=== PATIENT | male | born 1980 | race Caucasian/White ===

== ENCOUNTER → 2021-11-20 | Outpatient (CLI) | payer OTHER, SELFPAY ==
--- NOTE | 2021-11-20 12:29 | PFTCOMP ---
COMPLETE PULMONARY FUNCTION TEST INTERPRETATION Brief HPI: Patient is a 41 -year-old male, currently under the care of Dr. Chappell, who presents to [facility] for complete pulmonary function tests secondary to diagnosis of possible asthma. Respiratory therapist reports good effort and reproducible results. Interpretation: Forced expiration spirometry shows no large airways obstructive ventilatory defect with an FEV1 of 102% predicted. There is no significant bronchodilator response by strict ATS criteria. Spirograms are of good quality and plateau normally. The respiratory flow volume loop shows a normal pattern. Lung volumes by body plethysmography show a normal total lung capacity at 7.84 L, 105% predicted. All other lung volumes are within normal limits. Diffusion capacity by carbon monoxide is normal at 98% predicted. The airway resistance is normal. No previous pulmonary function tests were available for review. Impression: These pulmonary function tests are within normal limits. Consider bronchoprovocation study if asthma is still a consideration.
== END | disposition home or self-care (01) ==
PROVIDERS: PCP Family Medicine; Referring Provider Family Medicine; Visit Provider Family Medicine
DX: R09.89 Other specified symptoms and signs involving the circulatory and respiratory systems (principal)
CPT/HCPCS: 94060; 94726; 94729

== ENCOUNTER → 2023-05-23 | Outpatient (CLI) | payer OTHER, SELFPAY ==
--- NOTE | 2023-05-23 12:15 | RAD_ITS ---
STUDY: X-RAY - THORACIC SPINE REASON FOR EXAM: Male, 43 years old. Pain. TECHNIQUE: 3 view(s) of the thoracic spine were obtained. COMPARISON: None. FINDINGS: Normal kyphosis of the thoracic spine. There is no substantial scoliosis. Normal thoracic vertebrae and endplates. Normal disc space heights. Normal soft tissues RAD/Thoracic Spine 3 Views IMPRESSION: Normal x-ray examination of the thoracic spine. Electronically Signed: Theron Palacios MD at 16:04 EST ,
--- OUTSIDE RECORDS SUMMARY | 2023-05-23 12:33 | XMS RPT_ITS | CCD ---
Author Name Unknown Address [address] [place] [address] Organization [facility] Care Team Providers Care Apiculture Teacher Name Role Phone Arsenio Kelley MD Unavailable Karina Henson MD Primary Care Provider KARINA HENSON Referring UnavailKARINA Yun Attending UnavailKARINA Yun Primary Care UnavailKarina Yun MD Primary Care Provider Chang Fitzgerald MD Unavailable KARINA HENSON Referring Unavaila KARINA Munguia Primary Care Unavaila ETTA Mccoy Attending Unavailable KARINA HENSON Primary Care Unavaila ETTA Mccoy Attending Unavailable Unavailable Primary Care Provider Unavailchele e Unavailable Primary Care Provider Unavailabl e FAY SAUNDERS Primary Care Unavailable Medications Current Medications Medication Drug Class(es) Dates Sig (Normalized) Sig (Original) busPIRone hydrochloride 5 mg oral tablet (1 source) take 2.5 mg by mouth three times daily busPIRone (BUSPAR) 5 MG tablet Take 2.5 mg by mouth 3 (three) times a day . 0 Active predniSONE 10 mg oral tablet (3 sources) Start: 09-29-2022 End: 10-20-2022 predniSONE (DELTASONE) 10 mg tablet Indications: Rhus dermatitis Take 4 tabs daily x 3 days, then 3 tabs x 3 days, 2 tabs x 3 days, then 1 tab x3 days with food. 30 tablet 0 10/08/2022 10/20/2022 Active Completed/Discontinued Medications Medication Drug Class(es) Dates Sig (Normalized) Sig (Original) azelastine hydrochloride 0.137 mg/actuat metered dose nasal spray (6 sources) Histamine-1 Receptor Antagonist azelastine (ASTELIN, ASTEPRO) 0.1% nasal spray Use 1 Lexa in the nose once daily. 0 Active Problems Problem Classification Problem Date Documented Da te Episodic/Chronic Allergic reactions (1 source) Contact dermatitis due to Genus Toxicodendron; Translations: [Unspecified contact dermatitis due to plants, except food] Episodic Contraceptive and procreative management (1 source) Patient encounter status; Translations: [Encounter for other general counseling and advice on contraception] Episodic Other diseases of veins and lymphatics (2 sources) Varicocele; Translations: [Scrotal varices] Episodic Other lower respiratory disease (2 sources) Dyspnea; Translations: [Shortness of breath] Episodic Other lower respiratory disease (1 source) H/O: pneumonia; Translations: [Personal history of pneumonia (recurrent)] Episodic Other upper respiratory disease (1 source) Allergic rhinitis; Translations: [Other allergic rhinitis] Chronic Pneumonia (except that caused by tuberculosis or sexually transmitted disease) (1 source) Unresolved pneumonia ; Translations: [Pneumonia, unspecified organism] Episodic Results Test Name Value Interpretation Reference Range Facil ity Vital Signs Date Time Vital Sign Value Performing Clinician Faci adithya 10-08-2022 18:08-0400 Body temperature 97.59 [degF] Deonte Holman APRN.CNP Work Phone: [facility] 10-08-2022 18:08-0400 Body weight 84.64 kg Deonte Holman APRN.CNP Work Phone: [facility] 10-08-2022 18:08-0400 Diastolic blood pressure 68 mm[Hg] Deonte Holman APRN.CNP Work Phone: [facility] 10-08-2022 18:08-0400 Heart rate 61 /min Deonte Holman APRN.CNP Work Phone: [facility] 10-08-2022 18:08-0400 Respiratory rate 18 /min Deonte Holman APRN.CNP Work Phone: [facility] 10-08-2022 18:08-0400 SaO2% (BldA) [Mass fraction] 98 % Deonte Holman APRN.CNP Work Phone: [facility] 10-08-2022 18:08-0400 Systolic blood pressure 122 mm[Hg] Deonte King GRISELDA Work Phone: [facility] 03-13-2022 15:22-0500 Body height 182.9 cm Van Castillo PA-C Work Phone: [facility] 03-13-2022 15:22-0500 Body temperature 97.11 [degF] Van Castillo PA-C Work Phone: [facility] 03-13-2022 15:22-0500 Body weight 83.01 kg Van Castillo PA-C Work Phone: [facility] 03-13-2022 15:22-0500 Diastolic blood pressure 60 mm[Hg] Van Castillo PA-C Work Phone: [facility] 03-13-2022 15:22-0500 Heart rate 84 /min Van Castillo PA-C Work Phone: [facility] 03-13-2022 15:22-0500 Respiratory rate 14 /min Van Castillo PA-C Work Phone: [facility] 03-13-2022 15:22-0500 SaO2% (BldA) [Mass fraction] 97 % Van Castillo PA-C Work Phone: [facility] 03-13-2022 15:22-0500 Systolic blood pressure 104 mm[Hg] Van Castillo PA-C Work Phone: [facility] 12-26-2020 13:36-0400 Body height 182.9 cm Etta Cee MD Work Phone: [facility] 12-26-2020 13:36-0400 Body mass index (BMI) [Ratio] 23.82 kg/m2 Etta Cee MD Work Phone: [facility] 12-26-2020 13:36-0400 Body temperature 97 [degF] Etta Cee MD Work Phone: [facility] 12-26-2020 13:36-0400 Body weight 79.65 kg Etta Cee MD Work Phone: [facility] 12-26-2020 13:36-0400 Diastolic blood pressure 75 mm[Hg] Etta Cee MD Work Phone: [facility] 12-26-2020 13:36-0400 Heart rate 58 /min Etta Cee MD Work Phone: [facility] 12-26-2020 13:36-0400 Respiratory rate 16 /min Etta Cee MD Work Phone: [facility] 12-26-2020 13:36-0400 SaO2% (BldA) [Mass fraction] 97 % Etta Cee MD Work Phone: [facility] 12-26-2020 13:36-0400 Systolic blood pressure 119 mm[Hg] Etta Cee MD Work Phone: [facility] Encounters Encounter Date Encounter Type Care Provider Facility Start: 04-23-2023 End: 04-23-2023 [facility] Facility:[facility] Start: 10-08-2022 End: 10-08-2022 [facility] Facility:[facility] Start: 10-08-2022 End: 10-08-2022 Patient encounter procedure Deonte King GRISELDA Work Phone: [facility] Procedures Date Procedure Procedure Detail Performing Clinician Start: 03-16-2022 Dup-scan artl isabell abdl/pel/scrot&/rpr orgn com Van Castillo PA-C Work Phone: Start: 03-16-2022 Us scrotum & contents B sanchez Castillo PA-C Work Phone: Start: 09-13-2020 Radiologic exam ches t 2 views Karina Henson MD Work Phone: Plan of Treatment Date Care Activity Detail Author Start: 01-04-2023 Covid-19 Vaccine () Covid-19 Vaccine () [facility] Start: 01-04-2023 Influenza vaccination [facility] Start: 05-06-2022 DEPRESSION ASSESSMENT DEPRESSION ASSESSMENT [facility] Start: 04-06-2022 COVID-19 VACCINE (3 - Booster) COVID-19 VACCINE (3 - Booster) [facility] Start: 01-04-2022 Influenza vaccination INFLUENZA (#1) [facility] Start: 08-23-2021 History and physical examination, annual for health maintenance Wellness Visit [facility] Start: 05-06-2021 DEPRESSION ASSESSMENT DEPRESSION ASSESSMENT [facility] Start: 01-04-2021 Influenza vaccination Sequential Influenza Vaccine (#1) [facility] Start: 12-26-2020 End: 12-26-2020 Patient encounter procedure 12/26/2020 Office Visit Pulmonology ColemanEtta MD [address] [place] [address] [phone] [facility] Start: 04-16-2020 History and physical examination, annual for health maintenance Wellness Visit [facility] Start: 2016 Lipid 1996 panel - Serum or Plasma Lipid Screening [facility] Start: 2016 LIPID SCREEN LIPID SCREEN [facility] Start: 2000 Urine microalbumin profile [facility] Start: 1999 Hepatitis C screening Hepatitis C Screening [facility] Start: 1999 HEPATITIS C SCREENING HEPATITIS C SCREENING [facility] Start: 1999 HIV SCREENING HIV SCREENING [facility] Start: 1996 HIV screening HIV Screening [facility] Start: 1993 Depression screening using PHQ-9 (Patient Health Questionnaire 9) score Depression Screening (PHQ9) [facility] Start: 1981 HEPATITIS B (1 of 3 - 3-dose series) HEPATITIS B (1 of 3 - 3-dose series) [facility] Start: 1981 Hepatitis B Vaccine (1 of 3 - 3-dose series) Hepatitis B Vaccine (1 of 3 - 3-dose series) [facility] Start: 1981 Tetanus vaccination Tetanus: Every 10yrs [facility] End: 01-03-2022 Complete PFT PRE/ POST, VOLUMES, dlco Complete PFT PRE/ POST, VOLUMES, dlco PFT Routine SOB (shortness of breath) 1 Occurrences starting 12/26/2020 until 01/03/2022 [facility] Work Phone: Immunizations Immunization Date Immunization Notes Care Provider Fa pantera 04-08-2022 influenza virus vacc ine, unspecified formulation 1 Work Phone: [facility] Payers Date Payer Category Payer Private Health Insurance [id number] 2022 Unknown [id number] 2022 Unknown [id number] 2020 Unknown [id number] 2020 Unknown [id number] 1981 Unknown [id number] 1981 Unknown [id number] 1981 Unknown [id number] Social History Date Type Detail Facility Tobacco smoking stat [facility] Unknown if ever smoked [facility] Start: 1981 Sex Assigned At Not on file [facility] Start: 03-03-2022 End: 03-13-2022 Exposure to SARS-CoV-2 (event) Not sure [facility]: 12-26-2020 [facility] End: 12-26-2001 History of tobacco use Current smoker [facility] Start: 04-14-2020 End: 12-26-2020 Cigarettes smoked current (pack per day) - Reported 0.1 [facility] Start: 12-26-2020 End: 02-23-2021 Tobacco use and exposure Smokeless tobacco non-user [facility] Start: 12-26-2020 End: 03-13-2022 Alcohol intake Current drinker of alcohol (finding) [facility] Start: 12-26-2020 History SDOH Alcohol Comment periodically. Maybe twice a month at most. [facility] Start: 02-23-2021 End: 07-26-2022 Tobacco smoking status NHIS Never smoked tobacco [facility] Start: 03-13-2022 Alcohol Comment Socially [facility] Start: 04-14-2020 End: 03-13-2022 Tobacco use panel [facility] National Score (1-10 0), lower number is lower risk Not on file [facility] Clinical Notes 12-26-2020 to 04-23-2023 Deonte Holman APRN.IRIS - 10/08/2022 6:41 PM EDTTelephone Encounter - UBALDO Lynne - 09/30/2022 10:26 AM EDTTelephone Encounter - Etta Terry Ma - 03/19/2022 9:19 AM EST Note Date & Type Note Facility 04-23-2023 Note HNO ID: [id number] Author: Griselda Hook PA Service: ? Author Type: Physician Merchandise Stocker Type: Progress Notes Filed: 04/23/2023 9:48 AM Note Text: This note was created using Bringgriter. Subjective Pat Carlos is a 43 year old male. HPI 43-year-old male presents for sinus congestion, headache, body aches x 10 days. He states 10 days ago he started getting sinus congestion, sinus pain and pressure. He states he has a lot of green mucus. He states it has been getting worse. He has been using nasal rinses, Mucinex, Sudafed with minimal improvement. No cough. No fevers. He took home COVID test that were negative. No other complaint. No past medical history on file. PAST SURGICAL HISTORY Procedure Laterality Date PAST SURGICAL HISTORY OF Tonsillectomy at around [age] years old ALLERGIES Patient has no known allergies. MEDICATIONS zolpidem (AMBIEN) 10 mg Take 10 mg by mouth daily at bedtime. cetirizine (ZYRTEC) 10 mg tablet Take 10 mg by mouth once daily as needed. azelastine (ASTELIN, ASTEPRO) 0.1% nasal spray Use 1 Lexa in the nose once daily. fluticasone (FLONASE) 50 mcg/actuation nasal spray Use 2 Sprays in the nose once daily. amoxicillin-clavulanate potassium (AUGMENTIN) 875-125 mg per tablet Take 1 tablet by mouth two times a day for 5 days. No family history on file. Social History Tobacco Use Smoking status: Never Smokeless tobacco: Never Vaping Use Vaping Use: Never used Substance Use Topics Alcohol use: Yes Comment: Socially Drug use: Not Currently Types: Marijuana Review of Systems Constitutional: Negative for chills and fever. HENT: Positive for congestion, sinus pressure and sinus pain. Negative for sore throat. Respiratory: Negative for cough and shortness of breath. Gastrointestinal: Negative for diarrhea and vomiting. Neurological: Positive for headaches. Objective BP 120/81 Pulse 73 Temp 36.4 ?C (97.6 ?F) Resp 20 Wt 79.8 kg (176 lb) SpO2 100% BMI 23.87 kg/m? Physical Exam Vitals and nursing note reviewed. Constitutional: General: He is not in acute distress. Appearance: Normal appearance. He is not toxic-appearing. HENT: Right Ear: Tympanic membrane and ear canal normal. Left Ear: Tympanic membrane and ear canal normal. Nose: Mucosal edema and congestion present. Right Sinus: Maxillary sinus tenderness present. Left Sinus: Maxillary sinus tenderness present. Mouth/Throat: Mouth: Mucous membranes are moist. Eyes: Conjunctiva/sclera: Conjunctivae normal. Cardiovascular: Rate and Rhythm: Normal rate and regular rhythm. Pulmonary: Effort: Pulmonary effort is normal. Breath sounds: Normal breath sounds. Skin: General: Skin is warm and dry. Neurological: Mental Status: He is alert. Assessment and Plan ASSESSMENT/PLAN: 1. Bacterial sinusitis - ICD9: 473.9, 041.9, ICD10: J32.9, B96.89 - Will begin treatment with Augmentin 875 mg PO BID for 5 days - The patient should also be given OTC decongestants prn for the first 5-7 days of treatment. - Supportive care with plenty of fluids, rest, and analgesia prn. Diagnosis and treatment plan were discussed and questions were answered to the patient's satisfaction. Pt acknowledged understanding of concepts and follow up plan. Specific signs and symptoms that would indicate the need for higher level of care were discussed in detail warranting prompt ER evaluation. UBALDO Lynne [facility] 10-08-2022 Note HNO ID: [id number] Author: Deonte Holman APRN.[employer]PERVISOR Service: ? Author Type: Nurse Practitioner Type: Progress Notes Filed: 10/08/2022 6:43 PM Note Text: Subjective HPI HPI Pat Carlos is a 42 year old male who presents today for CC of itchy rash. Treated recently for pi with prednisone, rash improved for few days then worsened on legs, improved on arms. .Patient presents with: Rash: Poison yamel x2 weeks, seen 09/29 for same, rash now returning No past medical history on file. PAST SURGICAL HISTORY Procedure Laterality Date PAST SURGICAL HISTORY OF Tonsillectomy at around [age] years old ALLERGIES Patient has no known allergies. MEDICATIONS zolpidem (AMBIEN) 10 mg Take 10 mg by mouth daily at bedtime. cetirizine (ZYRTEC) 10 mg tablet Take 10 mg by mouth once daily as needed. azelastine (ASTELIN, ASTEPRO) 0.1% nasal spray Use 1 Lexa in the nose once daily. fluticasone (FLONASE) 50 mcg/actuation nasal spray Use 2 Sprays in the nose once daily. predniSONE (DELTASONE) 10 mg tablet Take 4 tabs daily x 3 days, then 3 tabs x 3 days, 2 tabs x 3 days, then 1 tab x3 days with food. triamcinolone acetonide (KENALOG) 0.1 % cream Apply 1 application to affected area three times daily for 10 days. Apply sparingly to area for rash/itching. No family history on file. Social History Tobacco Use Smoking status: Never Smokeless tobacco: Never Vaping Use Vaping Use: Never used Substance Use Topics Alcohol use: Yes Comment: Socially Drug use: Not Currently Types: Marijuana Review of Systems Constitutional: Negative for chills and fever. Skin: Positive for itching and rash (Positive for clear, watery drainage. Denies warmth and purulent drainage. ). Objective Blood pressure 122/68, pulse 61, temperature 36.4 ?C (97.6 ?F), resp. rate 18, weight 84.6 kg (186 lb 9.6 oz), SpO2 98 %. Physical Exam Constitutional: General: He is not in acute distress. Appearance: He is not toxic-appearing or diaphoretic. HENT: Head: Normocephalic and atraumatic. Skin: General: Skin is warm and dry. Findings: Rash present. Rash is vesicular (distribution linear ). Neurological: Mental Status: He is alert and oriented to person, place, and time. ASSESSMENT/PLAN: 1. Rhus dermatitis - ICD9: 692.6, ICD10: L25.5 - Oral Steriod tx -Prednisone taper - Topical steriod tx with Rx for steriod cream/ointment- see orders - discussed skin care of rash - follow up if symptoms persist or worsen. Let 1 more day go without steroid, try cream first, if worsens take second steroid taper. - PREDNISONE 10 MG TABLET - TRIAMCINOLONE ACETONIDE 0.1 % TOPICAL CREAM No problem-specific Assessment AND Plan notes found for this encounter. [facility] 10-08-2022 History of Present illness Narrative Images from the original note were not included. Subjective HPI HPI Pat Carlos is a 42 year old male who presents today for CC of itchy rash. Treated recently for pi with prednisone, rash improved for few days then worsened on legs, improved on arms. .Patient presents with: Rash: Poison yamel x2 weeks, seen 09/29 for same, rash now returning No past medical history on file. PAST SURGICAL HISTORY Procedure Laterality Date PAST SURGICAL HISTORY OF Tonsillectomy at around [age] years old ALLERGIES Patient has no known allergies. MEDICATIONS zolpidem (AMBIEN) 10 mg Take 10 mg by mouth daily at bedtime. cetirizine (ZYRTEC) 10 mg tablet Take 10 mg by mouth once daily as needed. azelastine (ASTELIN, ASTEPRO) 0.1% nasal spray Use 1 Lexa in the nose once daily. fluticasone (FLONASE) 50 mcg/actuation nasal spray Use 2 Sprays in the nose once daily. predniSONE (DELTASONE) 10 mg tablet Take 4 tabs daily x 3 days, then 3 tabs x 3 days, 2 tabs x 3 days, then 1 tab x3 days with food. triamcinolone acetonide (KENALOG) 0.1 % cream Apply 1 application to affected area three times daily for 10 days. Apply sparingly to area for rash/itching. No family history on file. Social History Tobacco Use Smoking status: Never Smokeless tobacco: Never Vaping Use Vaping Use: Never used Substance Use Topics Alcohol use: Yes Comment: Socially Drug use: Not Currently Types: Marijuana Review of Systems Constitutional: Negative for chills and fever. Skin: Positive for itching and rash (Positive for clear, watery drainage. Denies warmth and purulent drainage. ). Objective Blood pressure 122/68, pulse 61, temperature 36.4 C (97.6 F), resp. rate 18, weight 84.6 kg (186 lb 9.6 oz), SpO2 98 %. Physical Exam Constitutional: General: He is not in acute distress. Appearance: He is not toxic-appearing or diaphoretic. HENT: Head: Normocephalic and atraumatic. Skin: General: Skin is warm and dry. Findings: Rash present. Rash is vesicular (distribution linear ). Neurological: Mental Status: He is alert and oriented to person, place, and time. ASSESSMENT/PLAN: 1. Rhus dermatitis - ICD9: 692.6, ICD10: L25.5 - Oral Steriod tx -Prednisone taper - Topical steriod tx with Rx for steriod cream/ointment- see orders - discussed skin care of rash - follow up if symptoms persist or worsen. Let 1 more day go without steroid, try cream first, if worsens take second steroid taper. - PREDNISONE 10 MG TABLET - TRIAMCINOLONE ACETONIDE 0.1 % TOPICAL CREAM No problem-specific Assessment & Plan notes found for this encounter. documented in this encounter [facility] 09-30-2022 Miscellaneous Notes Patient called office asking about prescription for topical ointment for his poison yamel. He states this was discussed at his visit yesterday, but he did not receive prescription for it. I reviewed the provider's note. She did recommend topical Kenalog/steroid ointment along with the oral steroid. Oral steroid has already been sent to pharmacy. Rx was sent for triamcinolone ointment. documented in this encounter [facility] 09-29-2022 Note HNO ID: [id number] Author: Siomara Kimbrough APRN.IRIS Service: ? Author Type: Nurse Practitioner Type: Progress Notes Filed: 09/29/2022 10:49 AM Note Text: Subjective HPI Misha Carlos is a 42 year old male who presents with a rash on his feet, arms, legs, abdomen, chest. Has been present for 2 days and continues to spread. He has used benadryl cream at home without improvement. He has not had a fever. He denies mouth swelling or cough, shortness of breath. He has been clearing some land and states it is covered in [place] . Review of Systems Constitutional: Negative for chills and fever. HENT: Negative for sore throat. Respiratory: Negative for cough, shortness of breath and wheezing. Skin: Positive for itching and rash. BP 110/70 Pulse 62 Temp 36.3 ?C (97.4 ?F) (Tympanic) Resp 18 Wt 83.9 kg (185 lb) SpO2 97% BMI 25.09 kg/m? History reviewed. No pertinent past medical history. PAST SURGICAL HISTORY Procedure Laterality Date PAST SURGICAL HISTORY OF Tonsillectomy at around [age] years old ALLERGIES Patient has no known allergies. MEDICATIONS zolpidem (AMBIEN) 10 mg Take 10 mg by mouth daily at bedtime. cetirizine (ZYRTEC) 10 mg tablet Take 10 mg by mouth once daily as needed. azelastine (ASTELIN, ASTEPRO) 0.1% nasal spray Use 1 Lexa in the nose once daily. fluticasone (FLONASE) 50 mcg/actuation nasal spray Use 2 Sprays in the nose once daily. predniSONE (DELTASONE) 10 mg tablet Take 4 tabs daily for 3 days, then 2 tabs daily for 3 days, then 1 tab daily for 3 days with food. No family history on file. Social History Tobacco Use Smoking status: Never Smokeless tobacco: Never Vaping Use Vaping Use: Never used Substance Use Topics Alcohol use: Yes Comment: Socially Drug use: Not Currently Types: Marijuana Objective Physical Exam Vitals and nursing note reviewed. Constitutional: General: He is not in acute distress. Appearance: Normal appearance. HENT: Mouth/Throat: Mouth: Mucous membranes are moist. Pharynx: Oropharynx is clear. No oropharyngeal exudate or posterior oropharyngeal erythema. Cardiovascular: Rate and Rhythm: Normal rate and regular rhythm. Heart sounds: Normal heart sounds. Pulmonary: Effort: Pulmonary effort is normal. No respiratory distress. Breath sounds: Normal breath sounds. No wheezing or rales. Skin: General: Skin is warm and dry. Findings: No erythema or rash. Neurological: Mental Status: He is alert. ASSESSMENT/PLAN: 1. Dermatitis due to plants, including poison yamel, sumac, and oak - ICD9: 692.6, ICD10: L25.5 - Oral Steriod tx -Prednisone taper - Topical steriod tx with Kenalog - discussed skin care of rash - follow up if symptoms persist or worsen. - PREDNISONE 10 MG TABLET - Follow-up with your PCP in 3-5 days if symptoms have not improved or sooner if symptoms worsen - Discussed red flags and need for immediate medical evaluation if any occur. - Discussed supportive care treatment with fluids, rest and analgesia. - Discussed expected course of illness Siomara Kimbrough APRN.[employer] SUPERVISOR [facility] 07-26-2022 Note HNO ID: [id number] Author: Bailey Gannon APRN.[employer] SUPERVISOR Service: ? Author Type: Nurse Practitioner Type: Progress Notes Filed: 07/26/2022 6:01 PM Note Text: Subjective Patient came in with complaints of itching rash. Patient says he was working in [employer] yamel the other day trying to clear it from around their house. Patient says he thought he washed it off but he must of missed some. Patient denies any other symptoms. The history is provided by the patient. No speech language pathologist prn was used. Rash Review of Systems Constitutional: Negative. Skin: Positive for itching and rash. Objective Physical Exam Constitutional: Appearance: Normal appearance. Pulmonary: Effort: Pulmonary effort is normal. Skin: Comments: Has contact dermatitis located in the areas marked above in blue. Neurological: Mental Status: He is alert. No past medical history on file. PAST SURGICAL HISTORY Procedure Laterality Date PAST SURGICAL HISTORY OF Tonsillectomy at around [age] years old ALLERGIES Patient has no known allergies. MEDICATIONS zolpidem (AMBIEN) 10 mg Take 10 mg by mouth daily at bedtime. azelastine (ASTELIN, ASTEPRO) 0.1% nasal spray Use 1 Lexa in the nose once daily. fluticasone (FLONASE) 50 mcg/actuation nasal spray Use 2 Sprays in the nose once daily. methylPREDNISolone (MEDROL, DAVID,) 4 mg Dose-Pack Follow dosing instructions, take with food. cetirizine (ZYRTEC) 10 mg tablet Take 10 mg by mouth once daily as needed. No family history on file. Social History Tobacco Use Smoking status: Never Smokeless tobacco: Never Vaping Use Vaping Use: Never used Substance Use Topics Alcohol use: Yes Comment: Socially Drug use: Not Currently Types: Marijuana ASSESSMENT/PLAN: 1. Allergic contact dermatitis due to plants, except food - ICD9: 692.6, ICD10: L23.7 - METHYLPREDNISOLONE 4 MG TABLETS IN A DOSE PACK Patient was educated about proper use of medication and supportive therapy. Patient will follow-up if signs and symptoms seem to getting worse not better. Patient requested not to have regular prednisone due to it making his stomach nauseous. Bailey Gannon APRN.[facility] 03-19-2022 Miscellaneous Notes Patient returned call and message from Van Castillo given. Patient verbalized understanding and was transferred to [place] office to schedule appointment. Called patient. No answer- left message to call clinic for results/orders. Milagro Bell LPN Please let patient know his Scrotum US showed as expected Varicocele so he can talk to surgeon he picks for Vasectomy is aware and they could do both at same time if its indicated. He should have a consult with surgeon to discuss the possibility ELISSA Randhawa, MARIANGEL, BERTIN documented in this encounter [facility] 03-16-2022 History of Present illness Narrative Radiology Service Progress Note PATIENT NAME: Misha Carlos DATE OF SERVICE: March 16, 2022 TIME: 10:58 AM PATIENT IDENTITY VERIFICATION COMPLETED USING TWO (2) IDENTIFIERS: Name and Date of confirmed by patient verbally. FALL SCREENING: Has the patient had 2 falls in the last year or 1 fall with injury or currently using an Ambulatory Assistive Device (Walker, Cane, Wheelchair, Crutches, etc.)? No PATIENT GENDER DATA: Male PATIENT RELEVANT IMPLANT DATA REVIEWED: Not Applicable RADIOLOGY DEPARTMENT: Ultrasound PERIPHERAL IV DATA: Not applicable SIGNED BY: Silvina Ruth RDMS RVT March 16, 2022 10:58 AM documented in this encounter [facility] 03-13-2022 History of Present illness Narrative Misha Carlos March 13, 2022 Referred by: Self CC: Desires permanent sterilization HPI: 41 year old male states he desire permanent surgical sterilization. Reports fathering children and expressly states he does not desire to father children in the future. Genitourinary history: Hx undescended testis: No Hx stone disease: No Hx UTI/prostatitis/epididimitis/STI: No Sexual frequency/libido: No Urinary sx: No Hematuria: No No family history on file. History reviewed. No pertinent past medical history. PAST SURGICAL HISTORY Procedure Laterality Date PAST SURGICAL HISTORY OF Tonsillectomy at around [age] years old Current Outpatient Medications Medication Sig zolpidem (AMBIEN) 10 mg Take 10 mg by mouth daily at bedtime. cetirizine (ZYRTEC) 10 mg tablet Take 10 mg by mouth once daily as needed. azelastine (ASTELIN, ASTEPRO) 0.1% nasal spray Use 1 Lexa in the nose once daily. fluticasone (FLONASE) 50 mcg/actuation nasal spray Use 2 Sprays in the nose once daily. No current facility-administered medications for this visit. Allergies: Patient has no known allergies. Social History Tobacco Use Smoking status: Never Smokeless tobacco: Never Vaping Use Vaping Use: Never used Substance Use Topics Alcohol use: Yes Comment: Socially Drug use: Not Currently Types: Marijuana Occupation/exposures: None ROS: ENMT: No changes in hearing or vision, no nose bleeds or other nasal problems SKIN: Negative for lesions, rash, and itching. ENDOCRINE: Negative for cold or heat intolerance, polyuria, polydipsia and goiter. RESPIRATORY: Negative for cough, wheezing and shortness of breath CARDIOVASCULAR: Negative for chest pain, leg swelling and palpitations GI: Negative for abdominal discomfort, blood in stools or black stools : Negative for dysuria, frequency and incontinence MUSCULOSKELETAL: Negative for joint pain or swelling, back pain, and muscle pain. PSYCH: Negative for sleep disturbance, mood disorder and recent psychosocial stressors. NEURO: Negative All other systems reviewed and are negative. Physical Exam: BP 104/60 (BP Site: Left Arm, BP Position: Sitting, BP Cuff Size: Large Adult) Pulse 84 Temp 36.2 C (97.1 F) (Temporal) Resp 14 Ht 182.9 cm (6') Wt 83 kg (183 lb) SpO2 97% BMI 24.82 kg/m General: Well appearing, alert, in no acute distress, well-hydrated, well nourished. ENMT: Negative Neuro: Awake, alert and oriented x 3 Inguinal: No lympnadenopathy and No hernia Gastrointestinal:Non-tender, Soft : Testes: descended, without tenderness, and no masses bilaterally. L Normal ccs - R Normal ccs Phallus; normal, circumcised -, no lesions, Meatus: Orthotopic, patent, no discharge and Scrotum: no lesions, normal rugae Varicocele: Y - Left Epididymides: L Normal R Normal Vas deferens: Bilaterally Normal Musculoskeletal: normal, supple and thyroid normal size, non-tender, without nodularity Assessment: 41 year old male desires vasectomy. Patient is very anxious about having Vasectomy with Local Anesthetic only and requesting conscious sedation he will inquire if any surgeons offer this for Vasectomy He ill also be getting a Scrotum US due to PE showing possible Varicocele He may want to discuss having Varicocelectomy and Vasectomy together I gave him Dr. Magen swain and will get appointment to discuss this possibility The patient attests that he watched and understood the [facility] Vasectomy video and read and understood the No-Scalpel Vasectomy pamphlet. He was instructed to stop all NSAIDs, aspirin and other blood thinners 5 days prior to the vasectomy. He was instructed to shave entire front of scrotum to the base of the penis the morning of the vasectomy. Postprocedure care, expectations, and limitations were discussed. He voiced understanding of these instructions and stated his questions were answered. Plan: 1) Proceed to vasectomy scheduling I personally counseled this patient about the following and he voiced understanding: a) Vasectomy is a permanent and irreversible form of sterilization b) 1:1,000 rate of recanalization which can results in the return of sperm into the ejaculate after vasectomy c) Patient must use alternative form of control until he is notified that his postprocedure semen analysis contained no sperm. Consultation requested by Self for an opinion regarding vasectomy and my final recommendations will be communicated back to the requesting physician by way of shared Medical record or letter via US mail. Visit duration 30 minutes with approximately 50% of time in counseling ELISSA Randhawa, [place], BERTIN documented in this encounter [facility] 12-26-2020 Instructions Etat Cee MD - 12/26/2020 2:08 PM EDT Call Central Scheduling at [phone] when you (and the world) are ready to schedule your Complete PFT. The order will not expires until December 2021. documented in this encounter [facility] 12-26-2020 History of Present illness Narrative Assessment/Plan: Diagnoses and all orders for this visit: SOB (shortness of breath) - Ambulatory referral to Pulmonology - Complete PFT PRE/ POST, VOLUMES, dlco; Future History of pneumonia Non-seasonal allergic rhinitis due to other allergic trigger He had SOB with an episode of pneumonia earlier this year. Symptoms have resolved on exam, he is clear. Personal view of his September 2020 CXR shows no infiltrates. History does not suggest chronic or recurrent respiratory symptoms (other ferris chronic nasal drainage due to allergies). I did order PFTs. He was advised to call central scheduling to set this up. It may be prudent to wait until the surge calms down before doing this as he is not symptomatic now. The order is good for a year. He will receive results via [employer] or by phone call. If normal and he is doing well, he does not need to see me back unless he develops any new/ worsening issues. Clinical decision making was based on my interview with the patient, review of all outside records (8 pages [facility]), and personal view/ interpretation of available chest images HISTORY Pat Carlos is a 40 y.o. male who presents today for a recent episode of pneumonia and some associated SOB. He did have pneumonia in July or August 2020. He was having some chest congestion or mild discomfort and fatigue. He was treated with steroids and antibiotics. He reports he did have a CXR and was told he had pneumonia. He was never labored. Never had cough. He was never febrile. He began to notice some mild SOB in September. He presented to his pcp And his repeat CXR was clear. It was after this his symptoms began to improve/ resolve. He feels fine now. He allergies and has a good deal of nasal drainage. Allergy testing was in his early 20s. He reports he is allergic to many things including animal dander (he has cats and dogs). He can have some random cough with this. No previous pneumonia. ROS: Negatives: Fever, weight loss, fatigue, chest pain, palpitations, PND, orthopnea, new headache, acute double vision, new numbness/ tingling/ weakness, rashes, emesis, bloody stool, bloody urine, polyuria, polyphagia, new arthralgias or myalgias Positives: He has noticed some dry skin, darker on the inner part of his eye. Current Outpatient Medications: busPIRone (BUSPAR) 5 MG tablet, Take 2.5 mg by mouth 3 (three) times a day ., Disp: , Rfl: zolpidem (AMBIEN) 10 mg tablet, 1Y BY MOUTH ONCE DAILY AT BEDTIME FOR 30 DAYS, Disp: , Rfl: Allergies as of 12/26/2020 (No Known Allergies) Immunization History Administered Date(s) Administered Moderna SARS-CoV-2 Vaccination 08/03/2020, 08/31/2020 Past Medical History: Diagnosis Date Allergic rhinitis per pcp Anxiety Depression Insomnia Past Surgical History: Procedure Laterality Date COLONOSCOPY 2019 UPPER GASTROINTESTINAL ENDOSCOPY 2019 Family History Problem Relation Age of Onset Cirrhosis Mother Depression Mother Social History Socioeconomic History Marital status: Spouse name: Not on file Number of children: Not on file Years of education: Not on file Highest education level: Not on file Occupational History Not on file Tobacco Use Smoking status: Not on file Smokeless tobacco: Not on file Substance and Sexual Activity Alcohol use: Not on file Drug use: Not on file Sexual activity: Not on file Other Topics Concern Not on file Social History Narrative Not on file Social Determinants of Health Financial Resource Strain: Difficulty of Paying Living Expenses: Not on file Food Insecurity: Worried About Running Out of Food in the Last Year: Not on file Ran Out of Food in the Last Year: Not on file Transportation Needs: Lack of Transportation (Medical): Not on file Lack of Transportation (Non-Medical): Not on file Physical Activity: Days of Exercise per Week: Not on file Minutes of Exercise per Session: Not on file Stress: Feeling of Stress : Not on file Social Connections: Frequency of Communication with Friends and Family: Not on file Frequency of Social Gatherings with Friends and Family: Not on file Attends Sikhism Services: Not on file Active Member of Clubs or Organizations: Not on file Attends Club or Organization Meetings: Not on file Marital Status: Not on file Housing Stability: Unable to Pay for Housing in the Last Year: Not on file Number of Places Lived in the Last Year: Not on file Unstable Housing in the Last Year: Not on file Vitals: 12/26/20 1336 BP: 119/75 BP Location: Left arm Patient Position: Sitting BP Cuff Size: X-large Adult Pulse: (!) 58 Resp: 16 Temp: 97 F (36.1 C) TempSrc: Temporal SpO2: 97% Weight: 79.7 kg (175 lb 9.6 oz) Height: 6' EXAM: Gerneral: alert, oriented x 3, NAD Eyes: clear conjunctiva, pupils equal and round ENT: No thrush or lesions. Not hoarse. CVS: RRR, no MGR, no JVD or edema Pulm: Clear. No wheezing, crackles, no dullness. Not labored. No cyanosis or clubbing. Breath sounds and chest wall movement are normal. Abdomen: active BS, soft, NT Neuro: CN 2-12 are grossly intact. Skin: He has a small red macular patch on his right inner upper eyelid MS: No pain with palpation on spinous processes Psych: alert, appropriate. Pleasant Lymph: no cervical LAD [facility] Diagnosis SOB (shortness of breath)- Primary Shortness of breath [facility] Diagnosis SOB (shortness of breath)- Primary Shortness of breath History of pneumonia Personal history of pneumonia (recurrent) Non-seasonal allergic rhinitis due to other allergic trigger documented in this encounter [facility] note* Diagnosis Vasectomy evaluation- Primary Other general counseling and advice for contraceptive management Varicocele Scrotal varices documented in this encounter [facility] note* Diagnosis Rhus dermatitis- Primary Contact dermatitis and other eczema due to plants (except food) documented in this encounter [facility] note* Diagnosis Varicocele Scrotal varices documented in this encounter [facility] for referral (narrative)* Diagnostic Procedure Only (Routine) - Authorized Specialty Diagnoses / Procedures Referred By Contac t Referred To Contact US IMAGING Diagnoses Varicocele Procedures US DOPPLER COMPLETE DUP-SCAN ARTL ISABELL ABDL/PEL/SCROT&/RPR ORGN COM Van Castillo PA-C [address] [place] [address] Us Imaging Referral ID Status Reason Start Date Expiration Date Visits Requested Visits Authorized [id number] Authorized Auto-Generat ed Referral 03/13/2022 04/12/2023 1 1 * Diagnostic Procedure Only (Routine) - Authorized Specialty Diagnoses / Procedures Referred By Contac t Referred To Contact US IMAGING Diagnoses Varicocele Procedures US SCROTUM AND CONTENTS US SCROTUM & CONTENTS Van Castillo PA-C [address] [place] [address] Us Imaging Referral ID Status Reason Start Date Expiration Date Visits Requested Visits Authorized [id number] Authorized Auto-Generat ed Referral 03/13/2022 04/12/2023 [address] [facility] for referral (narrative)* Diagnostic Procedure Only (Routine) - Closed Specialty Diagnoses / Procedures Referred By Contac t Referred To Contact US IMAGING Diagnoses Varicocele Procedures US DOPPLER COMPLETE DUP-SCAN ARTL ISABELL ABDL/PEL/SCROT&/RPR ORGN [facility] Van Castillo PA-C [address] [place] [address] [place] [address] Referral ID Status Reason Start Date Expiration Date V isits Requested Visits Authorized [id number] Closed Auto-Generate d Referral 03/13/2022 04/12/2023 1 1 * Diagnostic Procedure Only (Routine) - Closed Specialty Diagnoses / Procedures Referred By Contac t Referred To Contact US IMAGING Diagnoses Varicocele Procedures US SCROTUM AND CONTENTS US SCROTUM & CONTENTS Van Castillo PA-C [address] [place] [address] [place] [id number] Referral ID Status Reason Start Date Expiration Date V isits Requested Visits Authorized [id number] Closed Auto-Generate d Referral 03/13/2022 04/12/2023 1 1 [facility] Advance Directives No Advanced Directives Records FoundDocuments on File Type Date Recorded Patient Visual Merchandising Manager Expl anation Advance Directives and Livin g Will 09/13/2020 4:07 PM Documents on File Type Date Recorded Patient Visual Merchandising Manager Expl anation Advance Directives and Livin g Will 09/13/2020 4:07 PM Reason for Referral Status Reason Specialty Diagnoses / Procedures Referred By Contact Referred To Contact Authorized Pulmonology Diagnoses SOB (shortness of breath) Pneumonia, unspecified organism Other fatigue Karina Henson MD [address] [place] [address] Etta Cee MD [address] [place] [address] Specialty Diagnoses / Procedures Referred By Contac t Referred To Contact Pulmonology Diagnoses SOB (shortness of breath) Procedures Complete PFT PRE/ POST, VOLUMES, dlco Etta Cee MD [address] [place] [address] Referral ID Status Reason Start Date Expiration Date V isits Requested Visits Authorized [id number] Authorized 12/26/2020 12/26/2021 1 1 Summary Purpose Family History No Family History Records FoundNo Family History Records FoundNo Family History Records Found Additional Source Comments (unrecognized sect ion and content) No Status Records FoundNo Status Records FoundNo Status Records Found INFORMATION SOURCE (unrecogn ized section and content) DATE CREATED AUTHOR AUTHOR'S ORGANIZ ATION 12/27/2020 [facility] DATE CREATED AUTHOR AUTHOR'S ORGANIZ ATION 04/24/2023 [facility] Reason for Visit (unrecogniz ed section and content) Specialty Diagnoses / Procedures Referred By Hillary huizar Referred To Contact Pulmonology Diagnoses SOB (shortness of breath) Pneumonia, unspecified organism Other fatigue Karina Henson MD [address] [place] [address] Etta Cee MD [address] [facility] [place] [address] Referral ID Status Reason Start Date Expiration Date Visits Re quested Visits Authorized [id number] Closed 09/19/2020 09/19/2021 1 1 Reason Comments New Patient Reason Comments Results Orders Reason Comments Patient Question Reason Comments Rash Poison yamel x2 weeks, seen 09/29 for same, rash now returning Reason Comments Radiology US Specialty Diagnoses / Procedures Referred By Hillary huizar Referred To Contact US IMAGING Diagnoses Varicocele Procedures US SCROTUM AND CONTENTS US SCROTUM & CONTENTS Van Castillo PA-C [address] [place] [address] [place] [id number] Referral ID Status Reason Start Date Expiration Date V isits Requested Visits Authorized [id number] Closed Auto-Generate d Referral 03/13/2022 04/12/2023 1 1 Care Teams (unrecognized sec tion and content) Source Comments (unrecognize d section and content) In the event this informatio n is protected by the Federal Confidentiality of Alcohol and Drug Abuse Patient Records regulations: The Federal rules restrict any use of the information to criminally investigate or prosecute any alcohol or drug abuse patient.[facility] the event this information is protected by the Federal Confidentiality of Alcohol and Drug Abuse Patient Records regulations: The Federal rules restrict any use of the information to criminally investigate or prosecute any alcohol or drug abuse patient.[facility] the event this information is protected by the Federal Confidentiality of Alcohol and Drug Abuse Patient Records regulations: The Federal rules restrict any use of the information to criminally investigate or prosecute any alcohol or drug abuse patient.[facility] the event this information is protected by the Federal Confidentiality of Alcohol and Drug Abuse Patient Records regulations: The Federal rules restrict any use of the information to criminally investigate or prosecute any alcohol or drug abuse patient.[facility] the event this information is protected by the Federal Confidentiality of Alcohol and Drug Abuse Patient Records regulations: The Federal rules restrict any use of the information to criminally investigate or prosecute any alcohol or drug abuse patient.[facility] FOR RECORDS PERTAINING TO PATIENTS WHO ARE OR HAVE BEEN ENROLLED IN A CHEMICAL DEPENDENCY/SUBSTANCEABUSE PROGRAM, SOME INFORMATION MAY BE OMITTED. This clinical summary was aggregated from multiple sources. Caution should be exercised in using it in the provision of clinical care. This summary normalizes information from multiple sources, and as a consequence, information in this document may materially change the coding, format and clinical context of patient data. In addition, data may be omitted in some cases. CLINICAL DECISIONS SHOULD BE BASED ON THE PRIMARY CLINICAL RECORDS. [employer] [facility]. provides no warranty or guarantee of the accuracy or completeness of information in this document.
== END | disposition home or self-care (01) ==
LOC: RAD 12:09
PROVIDERS: PCP Family Medicine; Referring Provider Family Medicine; Visit Provider Family Medicine
DX: M54.9 Dorsalgia, unspecified (principal)
CPT/HCPCS: 72072

== ENCOUNTER → 2023-07-26 | Outpatient (CLI) | payer OTHER, SELFPAY ==
[2023-07-26 10:22] LABS: Absolute Lymphocyte Count 2.48 X10^3/uL (0.83-4.51); Absolute Neutrophil Count 5.6 X10^3/uL (2.0-7.7); Basophil# 0.04 X10^3/uL; Basophil% 0.5 % (0-1); Eosinophil# 0.13 X10^3/uL; Eosinophils% 1.5 % (0-5); Hematocrit 44.9 % (40-54); Lymphocyte # 2.48 X10^3/ul (0.83-4.51); Mean Corp Hgb Conc 33.4 g/dL (32-36); Mean Corpuscular Hgb 30.7 pg (27.0-32.0); Mean Platelet Vol. 9.9 fl (6.2-12.0); Monocyte# 0.59 X10^3/uL; Monocyte% 6.7 % (0-10); NRBC Flagged by Analyzer 0 % (0-5); Platelet Count 292 K/mm3 (150-450); RBC Distribution Width CV 12.5 % (11.6-14.6); RBC Distribution Width SD 42.1 fl (35.1-43.9); Red Blood Count 4.88 M/mm3 (4.6-6.2); White Blood Count 8.9 K/mm3 (4.4-11.0)
[2023-07-26 11:57] LABS: AST(SGOT) 19 U/L (15-37); Alanine Aminotransfer ALT/SGPT 22 U/L (16-61); Albumin, Serum 4.1 g/dL (3.2-5.0); Alkaline Phosphatase 71 U/L (45-117); Anion Gap 7 (5-15); BUN 8 mg/dL (7-18); BUN/Creat Ratio 7.8 RATIO (10-20); Calcium,Total 9.8 mg/dL (8.5-10.1); Chloride 106 mmol/L (98-107); Cholesterol 140 mg/dL (200); Creatinine, Serum 1.03 mg/dL (0.70-1.30); EST Glomerular Filtration Rate 84 mL/min (>60); Est Glom Filt Rate - Afr Amer 102 mL/min (>60); Globulin 4.2 g/dL (2.2-4.2); Glucose 115 mg/dL (74-106); High Density Lipoprotein 49 mg/dL; Potassium 3.5 mmol/L (3.5-5.1); Protein, Total 8.3 g/dL (6.4-8.2); Sodium Level 139 mmol/L (136-145); Triglycerides 66 mg/dL; Very Low Density Lipoprotein 13 mg/dL (5-40)
[2023-07-26 17:15] LABS: Hemoglobin A1c 5.2 % (3.8-5.6)
== END | disposition home or self-care (01) ==
LOC: MTLAB 08:07
PROVIDERS: PCP Family Medicine; Referring Provider Family Medicine; Visit Provider Family Medicine
DX: Z00.00 Encounter for general adult medical examination without abnormal findings (principal); R73.01 Impaired fasting glucose
CPT/HCPCS: 36415; 80053; 80061; 83036; 85025

== ENCOUNTER → 2023-08-24 | Outpatient (CLI) | payer OTHER, SELFPAY ==
--- NOTE | 2023-08-24 08:53 | US_ITS ---
STUDY: ABDOMINAL ULTRASOUND REASON FOR EXAM: Male, 43 years old. ABDOMINAL PAIN ABD PAIN TECHNIQUE: Transabdominal ultrasound was performed with real-time and static turcios scale imaging. COMPARISON: None FINDINGS: Liver: There is normal echogenicity of the liver. The bile ducts are within normal limits. There is hepatic color flow. The direction of portal flow is hepatopetal. There is no demonstrated mass lesion. Gallbladder: Normal distended gallbladder. The gallbladder wall measures 1.2 mm. There is a negative sonographic Peters''s sign. There is no pericholecystic fluid. There are no gallstones. Common Bile Duct (C.B.D.): The common bile duct measures ( in mm): 5 Pancreas: Normal size of the head and body of the pancreas. There is normal echogenicity of the pancreas. There is no demonstrated pancreatic mass or cyst. Right Kidney: Normal size of the right kidney. The right kidney measures 10.3 cm. .There is a normal cortex of the kidney. There is no demonstrated renal mass or cyst. There is no right hydronephrosis. Aorta: 20 mm in maximal aortic diameter. Spleen: Normal size of the spleen. The spleen measures 9.5 cm. Question accessory spleen. Left Kidney: Normal size of the left kidney. The left kidney measures 10.7 cm. . There is a normal cortex of the left kidney. Cyst measures 15 mm. There is no left hydronephrosis. I.V.C.: The IVC is patent. There is no ascites. US/Abdomen Complete IMPRESSION: No acute findings. Electronically Signed: Hollis Rice MD at 15:39 EDT ,
== END | disposition home or self-care (01) ==
PROVIDERS: PCP Family Medicine; Referring Provider Family Medicine; Visit Provider Family Medicine
DX: R10.11 Right upper quadrant pain (principal)
CPT/HCPCS: 76700

== ENCOUNTER → 2024-12-04 | Outpatient (CLI) | payer BC, SELFPAY ==
[2024-12-04 18:36] LABS: Free T3 3.1 pg/mL (2.18-3.98)
== END | disposition home or self-care (01) ==
LOC: BFHLAB 14:59
PROVIDERS: PCP Family Medicine; Visit Provider Family Medicine
DX: R63.4 Abnormal weight loss (principal); F41.9 Anxiety disorder, unspecified
CPT/HCPCS: 36415; 84439; 84443; 84481